=== PATIENT | female | born 1970 | race Caucasian/White ===

== ENCOUNTER 2018-08-16 18:38 | Emergency (ER) | payer OTHER ==
[2018-08-16] MEDS ORDERED: KETOROLAC TROMETHAMINE 30 MG/ML SOL IM ONE (18:46)
[2018-08-16] MEDS ORDERED: KETOROLAC TROMETHAMINE 30 MG/ML SOL ONE (18:53)
[2018-08-16 19:06] VITALS: TEMP 96.3
[2018-08-16] MEDS ORDERED: LORAZEPAM 0.5 MG TAB PO ONE (19:30)
[2018-08-16] MEDS ORDERED: LORAZEPAM 0.5 MG TAB ONE (19:37)
[2018-08-16 20:00] VITALS: BP 119/83; PULSE 68; RESP 18; O2SAT 97
== END 2018-08-16 19:50 | disposition home or self-care (01) | DRG 999 ==
LOC: ED 18:38
DX: W00.9XXA Unspecified fall due to ice and snow, initial encounter (principal); S52.502A Unspecified fracture of the lower end of left radius, initial encounter for closed fracture
CPT/HCPCS: 29125; 73090; 96372; 99284; J1885; A9270-GY

== ENCOUNTER 2018-08-21 10:38 | Day surgery (SDC) | payer OTHER ==
[~2018-08-21 10:38] MED LIST: FENTANYL 100MCG/2ML SOL ONE; MIDAZOLAM 2 MG/2 ML SOL ONE; PROPOFOL 500 MG/50 ML EMU IV ONE
[2018-08-21] MEDS ORDERED: BUPIVACAINE HCL 0.25% MPF 30 ML SOL INFIL ONE (11:27)
[2018-08-21] MEDS ORDERED: BUPIVACAINE/EPI 0.5% 10 ML SOL INFIL ONE (11:31)
[2018-08-21] MEDS ORDERED: ONDANSETRON HCL 4 MG/2 ML SOL ONE (12:07)
[2018-08-21] MEDS ORDERED: CEFAZOLIN SODIUM 1 GM PDS IV ONE (12:15)
[2018-08-21] MEDS ORDERED: FENTANYL 100MCG/2ML SOL ONE (12:43)
[2018-08-21] MEDS ORDERED: KETOROLAC TROMETHAMINE 30 MG/ML SOL ONE (13:26)
[2018-08-21] MEDS ORDERED: HYDROMORPHONE 1 MG/ML SYRINGE ONE (13:45)
[2018-08-21 15:24] VITALS: BP 124/71; PULSE 66; RESP 14; TEMP 97.1; O2SAT 95
== END 2018-08-21 15:00 | disposition home or self-care (01) | DRG 561 ==
LOC: SURG 10:38
PROVIDERS: ATTEND Orthopaedic Surgery
DX: S52.532D Colles' fracture of left radius, subsequent encounter for closed fracture with routine healing (principal)
CPT/HCPCS: 73100; 76000; J0690; J1885; J2250; J2405; J3010; A6402; J1170; J2704

== ENCOUNTER 2018-08-28 11:24 | Outpatient (CLI) | payer OTHER ==
[2018-08-21 15:24] VITALS: O2SAT 95
== END 2018-08-28 11:25 | disposition home or self-care (01) | DRG 950 ==
LOC: CONVCARE 11:24
PROVIDERS: ATTEND Orthopaedic Surgery
DX: Z51.89 Encounter for other specified aftercare (principal); S52.502D Unspecified fracture of the lower end of left radius, subsequent encounter for closed fracture with routine healing
CPT/HCPCS: 73110

== ENCOUNTER 2018-09-25 09:28 | Outpatient (CLI) | payer OTHER ==
[2018-08-21 15:24] VITALS: O2SAT 95
== END 2018-09-25 09:29 | disposition home or self-care (01) | DRG 561 ==
LOC: CONVCARE 09:28
PROVIDERS: ATTEND Orthopaedic Surgery
DX: S52.502D Unspecified fracture of the lower end of left radius, subsequent encounter for closed fracture with routine healing (principal)
CPT/HCPCS: 73110

== ENCOUNTER 2018-12-04 11:06 | Outpatient (CLI) | payer OTHER ==
[2018-08-21 15:24] VITALS: O2SAT 95
== END 2018-12-04 11:07 | disposition home or self-care (01) | DRG 561 ==
LOC: CONVCARE 11:06
PROVIDERS: ATTEND Orthopaedic Surgery
DX: S52.502D Unspecified fracture of the lower end of left radius, subsequent encounter for closed fracture with routine healing (principal)
CPT/HCPCS: 73110